=== PATIENT | female | born 1965 | race African-American/Black ===

== ENCOUNTER 2019-12-13 01:02 | Emergency (ER) | payer OTHER ==
[2019-12-13 01:39] VITALS: TEMP 97.7; BMI 41.5
--- NOTE | 2019-12-13 04:10 | PDOC ---
Attending Attestation - Resident Resident Name: KinseyHenrik - ED Attending Attestation I have performed the following: I have examined & evaluated the patient, The case was reviewed & discussed with the resident, I agree w/resident's findings & plan - HPI HPI: 12/19/19 22:57 see resident hpi - Physicial Exam PE: 12/19/19 22:58 see resident exam - Medical Decision Making 12/19/19 22:58 54-year-old female complaining of swelling to the extremities as well as diffuse body aches/abdominal pain Case signed out to oncoming shift pending CT scan results
[2019-12-13] MEDS ORDERED: LIDOCAINE 5% TOPICAL PATCH TP ONE (04:19)
[2019-12-13] MEDS ORDERED: ACETAMINOPHEN 1000 MG/100 ML VIAL (NON FORMULARY) IVPB ONE (04:19)
--- NOTE | 2019-12-13 04:20 | PDOC ---
Attending Attestation - Resident Resident Name: Henrik Kinsey - ED Attending Attestation I have performed the following: I have examined & evaluated the patient, The case was reviewed & discussed with the resident, I agree w/resident's findings & plan
--- NOTE | 2019-12-13 04:20 | PDOC ---
History of Present Illness - General Chief Complaint: Pain Stated Complaint: BODY ACHE Time Seen by Provider: 12/13/19 04:02 History Source: Patient Exam Limitations: No Limitations - History of Present Illness Initial Comments: HPI: 54 y/o female presenting to [facility] ER complaining of atraumatic diffuse body aches. Has noticed pain and swelling to both hands, as well as lower back. Symptoms have worsened over the past several days. Now unable to ambulate. She was seen by her PCP and was told her "white count was through the roof." Denies any h/o CA, Lupus, or arthritis. Denies fevers, chills, or diaphoresis. No previous records available. Recently moved to the area from [place]. Followed at [facility]. Medical Hx: - CHF - CAD - HTN - HLD - T2DM w/ gastroparesis and peripheral neuropathy - COPD - KERRY - Hypothyrodism - s/p 2x right shoulder surgeries - S/p umbilical hernia repair - S/o x3 Review of Systems: In addition to that documented in the HPI above, the additional ROS was obtained : Constitutional- Denies fevers or chills Head- Denies vision changes ENMT- Denies sore throat CV- Denies chest pain Resp- Denies SOB GI- Denies vomiting, abdominal pain, or diarrhea - Denies painful urination MSK- Denies recent trauma Skin- Denies new rashes Neuro- Denies new numbness or tingling or weakness Endocrine- Denies polyuria Heme- Denies bleeding or bruising Physical Examination: Vital signs and nursing notes reviewed. Constitutional- Puny appearing obese adult female in no acute distress but obvious discomfort. Found semi-fowlers on hospital bed. Was unable to walk to the restroom and unintentionally voided on herself. No h/o urinary incontinence. Head- Normocephalic. No obvious external signs of trauma. Eyes- Sclerae white. Cardiovascular / Chest- Regular rate and regular rhythm. No murmur, rubs, clicks , or gallops. Peripheral pulses- radial pulses full. Trace pretibial edema bilaterally. Respiratory- Breathing unlabored. Speaking in complete sentences without pausing for breath. Equal chest rise and fall. Clear to auscultation bilaterally. No stridor, no wheezing, no rhonchi. Gastrointestinal- abdomen is diffusely tender with grimace, but worse in LUQ. Possible splenomegaly. Globally, abdomen is soft, but mildly distended.No pulsatile masses. No overlying skin lesions or obvious signs of trauma. Post surgical scar in midline. Neuro- Alert and oriented x4. Moving all four extremities spontaneously. Skin/MSK- Warm and dry. Diffuse swelling to R and L hand. Raised approx. 3cm x 3cm circular lesion to left wrist. - Questionable right sided CVA tenderness. Psych- Affect- appropriate. Mood- normal. Speech was non-labored, non- pressured. MDM: 54 y/o female presenting with atraumatic diffuse body aches and swelling to hands. Denies infectious symptoms. Undergoing outpatient workup for the aches with unknown results. Afebrile. Vitals unremarkable for hypotension or tachycardia. Physical exam as described above. Suspect possible autoimmune disorder. Low suspicion for traumatic or infectious etiology. Will obtain labs and CTAP given possible splenomegaly. Ordered Tylenol and Lidoderm patch for symptom improvement. Reviewed labs. No clinically significant derangement noted. Mild leukocytosis without left shift. CXR unremarkable for acute cardiopulmonary findings per ED wet read. Radiology report pending. Pt signed out to resident Dr. Levine after he was verbally appraised of the pt s HPI, current ED course, and plan of management. Will f/u pending CTAP. Dispo pending. Henrik Kinsey M.D., PGY2 Emergency Medicine Resident Past History - Past Medical History Allergies/Adverse Reactions: Allergies Allergy/AdvReac Type Severity Reaction Status Date / Time No Known Allergies Allergy Verified 12/13/19 03:09 Home Medications: Ambulatory Orders Albuterol 0.083% Nebulizer Pilar [Ventolin 0.083% Nebulizer Soln -] 1 amp NEB Albuterol Sulfate [Proair Digihaler] 90 mcg IH DAILY 12/13/19 Atorvastatin Ca [Lipitor] 10 mg PO HS 12/13/19 Carvedilol [Coreg -] 25 mg PO DAILY 12/13/19 Cholecalciferol (Vitamin D3) [Vitamin D3 -] 1,000 unit PO DAILY 12/13/19 Clopidogrel Bisulfate [Plavix] 75 mg PO DAILY 12/13/19 Escitalopram Oxalate [Lexapro -] 20 mg PO DAILY 12/13/19 Fluticasone/Vilanterol [Breo Ellipta 200-25 Mcg INH] 1 each IH 12/13/19 Insulin Glargine,Hum.rec.anlog [Lantus Solostar PEN (NF)] units SQ 12/13/19 Insulin Lispro Protamin/Lispro [Humalog Mix 50-50 Kwikpen] unit SQ 12/13/19 Levothyroxine Sodium [Levoxyl] 175 mcg PO DAILY 12/13/19 Lisinopril [Prinivil -] 40 mg PO DAILY 12/13/19 Metoclopramide HCl [Reglan -] 10 mg PO 12/13/19 Montelukast Na [Singulair -] 10 mg PO HS 12/13/19 Pantoprazole Sodium [Protonix] 40 mg PO DAILY 12/13/19 Spironolactone [Aldactone] 50 mg PO DAILY 12/13/19 Verapamil HCl [Verapamil ER] 120 mg PO DAILY 12/13/19 - Psycho Social/Smoking Cessation Hx Smoking History: Never smoked Hx Alcohol Use: No *Physical Exam - Vital Signs Last Vital Signs Temp Pulse Resp BP Pulse Ox 97.7 F 96 H 18 188/85 H 100 12/13/19 01:05 12/13/19 01:05 12/13/19 01:05 12/13/19 01:05 12/13/19 01:05 ED Treatment Course - LABORATORY CBC & Chemistry Diagram: 12/13/19 04:30 12/13/19 04:30 - RADIOLOGY Radiology Studies Ordered: Category Date Time Status CHEST X-RAY PORTABLE* [RAD] Stat Radiology 12/13/19 04:19 Ordered Discharge - Discharge Information Problems reviewed: Yes Clinical Impression/Diagnosis: Musculoskeletal pain, Viral syndrome Abdominal pain Qualifiers: Abdominal location: generalized Qualified Code(s): R10.84 - Generalized abdominal pain Condition: Stable Disposition: HOME - Follow up/Referral - Patient Discharge Instructions Patient Printed Discharge Instructions: DI for Musculoskeletal Pain Additional Instructions: You were seen in the Emergency Department, your labs and imaging were unremarkable. Your symptoms are likely related to a virus and will likely self resolve within a week. Review the handout provided at discharge. Be sure to frequently wash your hands. Avoid close contact with young children, elderly, or weak immune system. Follow up with your primary care doctor within a week. For pain you may take Tylenol 650mg every 6 hours and Ibuprofen 600mg every 6-8 hours, alternating them each time. Return to the Emergency Department if you develop fevers, chest pain, trouble breathing, worsening pain, change in sensation, worsening symptoms, or any new/ concerning symptoms. - Post Discharge Activity Work/Back to School Note: Back to Work
[2019-12-13] MEDS ORDERED: ACETAMINOPHEN INJECTION 100 ML IVPB ONE (04:41)
[2019-12-13] MEDS ORDERED: LIDOCAINE 5% TOPICAL PATCH ONE (04:41)
[2019-12-13 05:42] LABS: BASO % 1.1 % (0-2.0); EOS % 1.3 % (0-4.5); HEMATOCRIT 34.5 % (32.4-45.2); HEMOGLOBIN 11.7 GM/dL (10.7-15.3); LYMPH % 32.1 % (8-40); MCH 27.2 pg (25.7-33.7); MCHC 33.8 g/dl (32.0-36.0); MEAN CELL VOLUME 80.4 fl (80-96); MEAN PLT VOLUME 9.1 fl (7.5-11.1); MONO % 4.9 % (3.8-10.2); NEUT % 60.6 % (42.8-82.8); PLATELET COUNT 342 K/MM3 (134-434); RBC 4.29 M/mm3 (3.60-5.2); RDW 16.1 % (11.6-15.6); WHITE BLOOD COUNT 11.8 K/mm3 (4.0-10.0)
[2019-12-13] MEDS ORDERED: LISINOPRIL 20 MG TABLET (FP) PO ONE (06:17)
[2019-12-13] MEDS ORDERED: LISINOPRIL 20 MG TABLET (FP) ONE (06:21)
[2019-12-13 06:37] LABS: MAGNESIUM 2.1 mg/dL (1.8-2.4); PHOSPHOROUS 5.1 mg/dL (2.5-4.9)
[2019-12-13 07:10] LABS: ALBUMIN 3.4 g/dl (3.4-5.0); BILIRUBIN,TOTAL 0.5 mg/dL (0.2-1); CALCIUM 9.4 mg/dL (8.5-10.1); CREATININE 1.2 mg/dL (0.55-1.3); POTASSIUM 5.2 mmol/L (3.5-5.1)
--- NOTE | 2019-12-13 07:17 | PDOC ---
*Physical Exam - Vital Signs Last Vital Signs Temp Pulse Resp BP Pulse Ox 97.7 F 88 20 159/100 100 12/13/19 01:05 12/13/19 05:41 12/13/19 05:41 12/13/19 06:44 12/13/19 05:41 ED Treatment Course - LABORATORY CBC & Chemistry Diagram: 12/13/19 04:30 12/13/19 04:30 - ADDITIONAL ORDERS Additional order review: Laboratory Results 12/13/19 12/13/19 04:30 04:30 Sodium 135 L Potassium 5.2 H Chloride 102 Carbon Dioxide 26 Anion Gap 7 L BUN 17.0 Creatinine 1.2 Est GFR (CKD-EPI)AfAm 58.51 Est GFR (CKD-EPI)NonAf 50.48 Random Glucose 222 H Calcium 9.4 Phosphorus 5.1 H Magnesium 2.1 Total Bilirubin 0.5 AST 38 H ALT 21 Alkaline Phosphatase 97 Total Protein 7.0 Albumin 3.4 12/13/19 04:30 RBC 4.29 MCV 80.4 MCHC 33.8 RDW 16.1 H MPV 9.1 Neutrophils % 60.6 Lymphocytes % 32.1 Monocytes % 4.9 Eosinophils % 1.3 Basophils % 1.1 - Medications Given in the ED: ED Medications Discontinued Medications Generic Name Dose Route Start Last Admin Trade Name Freq PRN Reason Stop Dose Admin Acetaminophen 1,000 mg 12/13/19 04:19 12/13/19 04:48 Ofirmev Injection - IVPB 12/13/19 04:20 1,000 mg ONCE ONE Administration Lidocaine 1 patch 12/13/19 04:19 12/13/19 04:48 Lidoderm Patch - TP 12/13/19 04:20 1 patch ONCE ONE Administration Lisinopril 40 mg 12/13/19 06:17 12/13/19 06:24 Prinivil PO 12/13/19 06:18 40 mg ONCE ONE Administration Medical Decision Making - Medical Decision Making Pending CT 12/13/19 07:17 CT A&P w/o acute pathology Pt reports generalized aches/swelling w/ intermittent fevers Possibly 2/2 viral illness Plan for D/C w/ PCP f/u Discharge instructions and return precautions given Patient in agreement and verbalized understanding Dispo: Home 12/13/19 10:19 Discharge - Discharge Information Problems reviewed: Yes Clinical Impression/Diagnosis: Musculoskeletal pain, Viral syndrome Abdominal pain Qualifiers: Abdominal location: generalized Qualified Code(s): R10.84 - Generalized abdominal pain Condition: Stable Disposition: HOME - Admission No - Follow up/Referral - Patient Discharge Instructions Patient Printed Discharge Instructions: DI for Musculoskeletal Pain Additional Instructions: You were seen in the Emergency Department, your labs and imaging were unremarkable. Your symptoms are likely related to a virus and will likely self resolve within a week. Review the handout provided at discharge. Be sure to frequently wash your hands. Avoid close contact with young children, elderly, or weak immune system. Follow up with your primary care doctor within a week. For pain you may take Tylenol 650mg every 6 hours and Ibuprofen 600mg every 6-8 hours, alternating them each time. Return to the Emergency Department if you develop fevers, chest pain, trouble breathing, worsening pain, change in sensation, worsening symptoms, or any new/ concerning symptoms. - Post Discharge Activity Work/Back to School Note: Back to Work
[2019-12-13 09:25] LABS: URINE APPEARANCE CLEAR; URINE BILIRUBIN NEGATIVE (NEGATIVE); URINE COLOR YELLOW; URINE GLUCOSE (UA) NEGATIVE (NEGATIVE); URINE KETONE NEGATIVE (NEGATIVE); URINE LEUK ESTERASE NEGATIVE (NEGATIVE); URINE NITRITE NEGATIVE (NEGATIVE); URINE PROTEIN NEGATIVE (NEGATIVE); URINE UROBILINOGEN 0.2 mg/dL (0.2-1.0)
[2019-12-13] MEDS ORDERED: KETOROLAC TROMETHAMINE 15 MG/ML VIAL IVPUSH ONE (10:34)
[2019-12-13] MEDS ORDERED: KETOROLAC TROMETHAMINE 15 MG/ML VIAL ONE (10:37)
[2019-12-13 12:01] VITALS: BP 178/88; PULSE 92
--- NOTE | 2019-12-13 15:11 | EKG ---
Test Reason : Blood Pressure : / mmHG Vent. Rate : 086 BPM Atrial Rate : 086 BPM P-R Int : 170 ms QRS Dur : 080 ms QT Int : 402 ms P-R-T Axes : 000 042 152 degrees QTc Int : 481 ms NORMAL SINUS RHYTHM POSSIBLE LATERAL INFARCT , AGE UNDETERMINED ABNORMAL ECG NO PREVIOUS ECGS AVAILABLE Confirmed by SARAH MADSEN MD ([id number]) on 12/13/2019 3:10:53 PM Referred By: Confirmed By:SARAH MADSEN MD
[2019-12-13] MEDS ORDERED: LIDOCAINE PATCH REMOVAL MC SCH (22:00)
== END 2019-12-13 14:00 | disposition home or self-care (01) ==
LOC: JER 01:02
PROC: 3E033NZ Introduction of Analgesics, Hypnotics, Sedatives into Peripheral Vein, Percutaneous Approach (ICD-10-PCS; principal; 2019-12-13)
PROC: 3E0333Z Introduction of Anti-inflammatory into Peripheral Vein, Percutaneous Approach (ICD-10-PCS; 2019-12-13)
DX: R10.84 Generalized abdominal pain (principal); B34.9 Viral infection, unspecified; M54.5 Low back pain; I25.10 Atherosclerotic heart disease of native coronary artery without angina pectoris; I11.0 Hypertensive heart disease with heart failure; I50.9 Heart failure, unspecified; E11.42 Type 2 diabetes mellitus with diabetic polyneuropathy; E11.43 Type 2 diabetes mellitus with diabetic autonomic (poly)neuropathy; K31.84 Gastroparesis; Z79.84 Long term (current) use of oral hypoglycemic drugs; E78.5 Hyperlipidemia, unspecified; G47.33 Obstructive sleep apnea (adult) (pediatric); E03.9 Hypothyroidism, unspecified; J44.9 Chronic obstructive pulmonary disease, unspecified
CPT/HCPCS: 36415; 71045-TC-FY; 74177-TC; 80053; 81003; 83735; 84100; 85025; 85651; 86140; 87086; 93005; 93010; 99284-25; J0131